=== PATIENT | male | born 1960 | race Caucasian/White ===

== ENCOUNTER 2016-08-27 09:29 | Inpatient (IN) ==
[2016-08-27 10:16] LABS: MANUAL DIFF NEEDED? NO
--- NOTE | 2016-08-27 10:24 | PROVIDER DOCUMENTATION ---
HPI-Abdominal Pain/GI Problem - General Chief Complaint: Abdominal Pain Stated Complaint: POSS DIVERTICULITIS Time Seen by Provider: 08/27/16 10:07 Source: patient, family Allergies/Adverse Reactions: Patient Allergies Allergy/AdvReac Type Severity Reaction Status Date / Time No Known Allergies Allergy Verified 08/27/16 10:44 Home Medications: Home Medication List Medication Instructions Recorded Confirmed Last Taken Type No Home Medications 08/27/16 08/27/16 Unknown History - History of Present Illness-ABD Nature of Presenting Problems: 56 yo WM with two week history of lower abdominal and groin pain. Worse over last 4-5 days. Painful walking. Saw Dr. Mast yesterday and given Cipro and Gi referral. Called in sick to work yesterday. Abdominal Pain Onset Location: reports: LLQ, suprapubic Pain Radiation: reports: back Quality of Pain: reports: aching, pressure Onset/Duration: reports: other Timing: reports: still present Activities at Onset: reports: none Exposure to sick contacts?: No Modifying Factors: improves with: analgesics. worse with: defecating Associated Symptoms: reports: fever/chills, nausea. denies: chest pain, constipation, diarrhea, sinus congestion/drainage, swelling/mass in abdomen, vomiting Last BM: this morning Rectal Bleeding: reports: none Bruising or Bleeding Gums?: No Similar Symptoms Previously?: Yes Recently seen or treated by another doctor?: Yes Review of Systems - Adult - REVIEW OF SYSTEMS - ADULT Constitutional: reports: chills, fever Eyes: reports: no symptoms reported Ears, Nose, Mouth & Throat: reports: no symptoms reported Cardiovascular: reports: no symptoms reported Respiratory: reports: no symptoms reported Gastrointestinal: reports: see HPI, nausea, poor appetite. denies: hematemesis , constipation, diarrhea, rectal bleeding, vomiting Genitourinary: reports: no symptoms reported Musculoskeletal: reports: no symptoms reported Integumentary: reports: no symptoms reported Neurological: reports: no symptoms reported Psychiatric: reports: no symptoms reported Endocrine: reports: no symptoms reported Hematologic/Lymphatic: reports: no symptoms reported Allergic/Immunologic: reports: no symptoms reported All Other Systems: Reviewed and Negative Past History - Adult - PAST MEDICAL HISTORY-ADULT Review of Records: reports: Old Records Reviewed, Nursing Assessment Review, Medications Reviewed, Social history reviewed & non-contributory. Major Childhood Illnesses: reports: denies history Cardiovascular: reports: denies history Respiratory: reports: bronchitis, COPD Gastrointestinal: reports: diverticulosis, other (R groin surgery for testicle) Genitourinary: reports: denies history Musculoskeletal: reports: denies history Neurological: reports: denies history Psychiatric: reports: denies history - PRIOR SURGERIES/PROCEDURES Surgical/Procedure History: reports: other (abdominal abscess drainage 2010 - diverticulitis) - FAMILY HISTORY Family History: reviewed, not pertinent - SOCIAL HISTORY Smoking: greater than 1 pack/day Substance Use: none/never, denies Alcohol Use Frequency: never Living Situation: family Physical Exam-General - PHYSICAL EXAM-ADULT Initial Vital Signs Reviewed: Yes - CONSTITUTIONAL General Appearance: appears well, alert, no apparent distress - EYES Eyes: PERRL/EOMI, pink conjunctivae. negative: scleral icterus - HEAD, EARS, NOSE, MOUTH & THROAT HENMT: normocephalic/atraumatic, moist mucous membranes - NECK Neck: full range of motion, supple - RESPIRATORY Respiratory: normal breath sounds, no pleuratic chest pain, no respiratory distress, no accessory muscle use, prolonged expiration - CARDIOVASCULAR Cardiovascular: normal peripheral pulses, regular rate, rhythm - GASTROINTESTINAL (ABDOMEN) Abdominal Exam: normal bowel sounds, tenderness (LLQ mild/mod) - MUSCULOSKELETAL Back Exam: no CVA tenderness, no vertebral tenderness Extremity: no pedal edema Peripheral Pulses: radial (R): 2+, radial (L): 2+, femoral (R): 1+, femoral (L) : 1+ - SKIN Integumentary: normal color, normal turgor, warm/dry - NEUROLOGIC Neurologic: grossly normal, no motor/sensory deficits - PSYCHIATRIC Psych/Mental Status: normal mood/affect, normal thought content, normal thought process, oriented x 3 Progress - PLAN OF CARE/RESULTS Progress/Plan/Lab Results: Vital Signs Temp Pulse Resp BP Pulse Ox 08/27/16 15:23 98.2 F 44 L 20 128/64 97 08/27/16 09:34 97.7 F 80 18 142/86 97 No Known Allergies Allergy (Verified 08/27/16 10:44) No Home Medications 08/27/16 Dietary Diet NPO Start TueAug 27 1425 Laboratory 08/27/16 08/27/16 08/27/16 10:40 09:37 09:37 WBC 17.63 H RBC 5.08 Hgb 15.4 Hct 46.8 MCV 92.1 MCH 30.3 MCHC 32.9 L RDW Std Deviation 14.3 Plt Count 328 MPV 10.7 H Immature Gran % (Auto) 0.2 Neut % (Auto) 77.4 H Lymph % (Auto) 12.8 L Wallace % (Auto) 8.7 Eos % (Auto) 0.6 Baso % (Auto) 0.3 Immature Gran # (Auto) 0.03 Neut # (Auto) 13.65 H Lymph # (Auto) 2.25 Wallace # (Auto) 1.54 H Eos # (Auto) 0.11 Baso # (Auto) 0.05 Sodium 134 L Potassium 4.3 Chloride 94 L Carbon Dioxide 23 L Anion Gap 17 BUN 12 Creatinine 1.0 Estimated GFR/1.73 m2 > 60 BUN/Creatinine Ratio 12 Glucose 116 H Calculated Osmolality 269 Calcium 9.4 Total Bilirubin 0.87 AST 11 ALT 10 Alkaline Phosphatase 83 Total Protein 7.9 Albumin 3.9 Globulin 4.0 Albumin/Globulin Ratio 1.0 Urine Source CLEAN CATCH Urine Color YELLOW Urine Turbidity CLEAR Urine pH 5.5 Ur Specific [place] 1.020 Urine Protein TRACE A Ur Glucose (Stick) NEGATIVE Ur Ketones (Stick) 60 A Urine Blood NEGATIVE Urine Nitrite NEGATIVE Urine Bilirubin NEGATIVE Urobilinogen Dipstick NORMAL Urine Leukocytes NEGATIVE Urine WBC (Auto) <10 Urine RBC (Auto) <10 U Epithel Cells (Auto) <10 Urine Bacteria (Auto) NEGATIVE - CONSULTS/PCP/HOSPITALIST Notification #1 *Consult/PCP/Hospitalist*: Chhaya Consult Disposition: Will see in ED Departure - Departure Time of Disposition Order: 14:00 DIAGNOSIS: Acute diverticulitis Disposition: ADMITTED INPATIENT 09 Certified Medical Emergency: Emergent Condition: Stable
[2016-08-27 10:44] LABS: BASO% 0.3 % (0.0-0.8); EOS# 0.11 X1000 (0.0-0.7); EOS% 0.6 % (0.0-10.0); HEMATOCRIT 46.8 % (42.0-52.0); HEMOGLOBIN 15.4 g/dL (14.0-18.0); IMM GRAN# 0.03 X1000 (0.0-0.04); IMM GRAN% 0.2 % (0.0-0.5); LYMPH# 2.25 X1000 (1.2-3.4); LYMPH% 12.8 % (20.5-51.1); MCH 30.3 PG (27-31); MCHC 32.9 g/dL (33-37); MCV 92.1 FL (81-99); MONO# 1.54 X1000 (0.11-0.59); MONO% 8.7 % (1.7-9.3); MPV 10.7 FL (7.4-10.4); NEUT% 77.4 % (42.2-75.2); PLT 328 X1000 (130-400); RBC 5.08 XMIL (4.7-6.1)
--- NOTE | 2016-08-27 10:52 | Diag Imaging Result Document ---
PROCEDURE NAME: ABDOMEN FLAT/UPRIGHT - 08/27/2016 FLAT AND UPRIGHT RADIOGRAPH OF THE ABDOMEN: COMPARISON: 08/31/2014. FINDINGS: There are unremarkable bowel gas and stool patterns. There is no evidence of bowel obstruction. There is no evidence of large volume free abdominal gas. There is no definite organomegaly. IMPRESSION: No evidence of acute abdominal pathology identified.
[2016-08-27 10:57] LABS: AGAP 17; ALBUMIN 3.9 g/dL (3.5-5.0); ALKALINE PHOSPHATASE 83 U/L (32-122); BUN 12 mg/dL (8-22); CALCIUM 9.4 mg/dL (8.8-10.2); CHLORIDE 94 mmol/L (98-107); COSMO 269; GOT 11 U/L (10-34); GPT 10 U/L (10-44); POTASSIUM 4.3 mmol/L (3.5-5.1); SODIUM 134 mmol/L (136-145); TCO2 23 mmol/L (25-35); TOTAL BILIRUBIN 0.87 mg/dL (0.20-1.00); TOTAL PROTEIN 7.9 g/dL (6.3-8.3)
[2016-08-27 11:04] LABS: URINE MICRO REVIEW NEEDED? NO; URINE SOURCE CLEAN CATCH
[2016-08-27 11:23] LABS: BILIRUBIN URINE NEGATIVE (NEGATIVE); BLOOD URINE NEGATIVE (NEGATIVE); COLOR YELLOW; GLUCOSE URINE NEGATIVE (NEGATIVE); LEUKOCYTES URINE NEGATIVE (NEGATIVE); NITRITE URINE NEGATIVE (NEGATIVE); PH URINE 5.5; PROTEIN URINE TRACE mg/dL (NEGATIVE); TURBIDITY URINE CLEAR (CLEAR); UROBILINOGEN URINE NORMAL (NORMAL)
[2016-08-27 11:24] LABS: UR EPITHELIAL CELLS <10 /HPF (<10); URINE BACTERIA NEGATIVE /HPF; URINE RBC <10 /HPF (<10); URINE WBC <10 /HPF (<10)
[2016-08-27] MEDS ORDERED: ZOSYN 3.375 GM/NS 50 ML IV ONE (12:24)
--- NOTE | 2016-08-27 13:24 | Diag Imaging Result Document ---
PROCEDURE NAME: CT ABD/PELVIS W/ IV CONT ONLY - 08/27/2016 CT OF THE ABDOMEN WITH INTRAVENOUS CONTRAST: COMPARISON: The current study is compared with that of 07/02/2011. FINDINGS: The pleural effusion on both sides which was present previously is no longer present. The spleen, adrenal glands, and pancreas are stable in appearance. There are no gallstones. There is no evidence of hydronephrosis, stones or masses in the kidneys. There is an abdominal aortic aneurysm below the level of the renal arteries. There is an accessory renal artery in the upper pole on the left. The abdominal aorta measures a maximum of 3.6 x 3.9 cm in AP and transverse dimension respectively. Compared to the previous study, this has increased from an AP dimension of 3.1 cm. There is considerable mural thrombus. The inferior mesenteric artery is patent as are the other mesenteric vessels. There is no evidence of significant adenopathy. There is an ovoid soft tissue density anterior to the inferior vena cava slightly below the level of the iliac crest, which was also present at the time of the previous study measuring 15 mm in diameter currently and almost [address] OF THE PELVIS WITH INTRAVENOUS CONTRAST: FINDINGS: There are multiple abnormal fluid collections around the sigmoid colon distally. These most likely represent abscesses. One at the level of image 117 measures up to 4.8 cm in diameter. Another apparently separate fluid collection posteriorly and to the right side measures up to 3.9 cm and another more posteriorly and inferiorly on image 117 measures 3.4 cm in transverse dimension. There is another fluid collection present caudal to the sigmoid on image 128 which measures up to 3.4 cm in diameter. There is some fluid in the inguinal canal on the right. There is a seroma at the inguinal ring which may be due to previous herniorrhaphy. The regional skeleton is stable in appearance. IMPRESSION: 1. Abdominal aortic aneurysm. 2. Multiple pelvic abscesses probably resulting from diverticulitis of the sigmoid colon.
[2016-08-27] MEDS ORDERED: ZOSYN 3.375 GM/NS 50 ML IV SCH (15:23)
[2016-08-27] MEDS: NS 1,000 ML IV SCH (15:39)
[2016-08-27] MEDS ORDERED: ZOFRAN IV PRN (15:51)
[2016-08-27] MEDS ORDERED: DILAUDID IV PRN (15:52)
--- NOTE | 2016-08-27 16:20 | HISTORY AND PHYSICAL ---
PRIMARY CARE PHYSICIAN: None. CHIEF COMPLAINT: Abdominal pain. HISTORY OF PRESENT ILLNESS: Mr. Ba is a 56-year-old male with a history of diverticulosis and diverticulitis in the past as well as nicotine dependence who presents with 2 weeks of progressively worsening abdominal pain. He describes intermittent sharp and dull pain associated with fevers and chills, but no diarrhea or vomiting. The pain became progressively worse, to the point were he had to come to the ER. He denies any diarrhea or vomiting. He denies any chest pain or shortness of breath. When he got to the ER he had a CT of the abdomen and pelvis done which revealed multiple pelvic abscesses probably resulting from diverticulitis of the sigmoid colon. There was also an abdominal aortic aneurysm below the level of the renal arteries. Maximum measurement was 3.6 x 3.9 cm. There was considerable mural thrombus. There was an avid soft tissue density anterior to the inferior vena cava slightly below the level of the iliac crest. His laboratory data shows leukocytosis, but otherwise is largely unremarkable. Blood cultures have been obtained, antibiotics initiated, and the patient will now be admitted for further treatment and evaluation. PAST MEDICAL HISTORY: 1. History of diverticulosis and diverticulitis in the past. 2. Nicotine dependence. SURGICAL HISTORY: Herniorrhaphy. SOCIAL HISTORY: Patient smokes 2 packs a day. He denies alcohol or drug use. He is . He has no children. He works at [employer] part-time. FAMILY HISTORY: Noncontributory. REVIEW OF SYSTEMS: Fourteen-point review of systems obtained and found to be negative with the exception of the HPI. ALLERGIES: No known drug allergies. HOME MEDICATIONS: None. PHYSICAL EXAMINATION: VITAL SIGNS: Blood pressure is 128/64, heart rate is 80, respiratory rate is 20, O2 saturation 97% on room air. Temperature is 98.2 degrees. GENERAL: This is a disheveled appearing 56-year-old male lying in the hospital bed in no acute distress. NEUROLOGIC: He is awake, alert, and oriented. He follows commands without focal deficits. HEENT: Head is atraumatic and normocephalic. His pupils are equal, round, and reactive to light. Oral mucosa is moist. Trachea is midline. No JVD or carotid bruits. CHEST: Clear to auscultation bilaterally. CARDIOVASCULAR: Regular rate and rhythm. S1 and S2 noted. There are no murmurs, gallops, clicks, or rubs. GASTROINTESTINAL: Bilateral lower quadrant tenderness to palpation. Hypoactive bowel sounds, but overall belly is soft and nondistended. Bowel sounds are hypoactive. EXTREMITIES: Without edema, clubbing or cyanosis. Pulses are palpable bilaterally. DIAGNOSTIC DATA: WBC 17.63, hemoglobin 15.4, hematocrit 46.8, platelet count 328,000. Sodium 134, potassium 4.3, chloride 94, CO2 of 23, anion gap 17, BUN 12, creatinine 1, glucose 116, AST 11, ALT 10, alkaline phosphatase 83. UA is negative for any acute process. ASSESSMENT AND PLAN: 1. Diverticulitis: The patient has had blood cultures and antibiotics have been initiated. We will keep the patient n.p.o. IV fluids, IV pain medication, and proton pump inhibitor. Depending on his course, we will consider consultation with GI if he worsens. Otherwise we can give him IV antibiotics and let him follow up with GI on an outpatient basis. If his symptoms worsen, obviously, we will have GI consult. 2. Leukocytosis: No other signs of systemic inflammation. Blood cultures have been obtained and we are continuing with Zosyn. 3. Nicotine dependence: Patient has been highly advised to quit smoking. We will continue daily cessation education and write for a patch daily. 4. Small abdominal aortic aneurysm: Certainly not large enough to intervene on; however, we will monitor his blood pressure and control appropriately, and have him follow up outpatient with PCP or cardiothoracic surgeon. 5. GI prophylaxis with Protonix and DVT prophylaxis with TEDs, SCDs. Further recommendations to follow. Dictated by BEVERLY Holman for Astrid Gay MD
[2016-08-27] MEDS: SODIUM CHLORIDE 0.9% INJ SCH (16:25)
[2016-08-27] MEDS: FLAGYL 500 MG/NS 100 ML IV SCH ×2 (16:25→21:39)
[2016-08-27] MEDS: PROTONIX IV SCH (16:25)
[2016-08-27] MEDS: LEVAQUIN 750 MG in NS 150 ML IV SCH (18:33)
--- NOTE | 2016-08-27 18:43 | CONSULTATION ---
DATE OF CONSULTATION: 08/27/2016 REQUESTING PHYSICIAN: Dr. Kulkarni. Consult concerning recurrent diverticulitis with abscess. HISTORY OF PRESENT ILLNESS: A 56-year-old, male, well known to my group who has been previously followed by Dr. Melendez for diverticulosis and diverticulitis in the past. He has had at least 2 previous episodes, one in 2010 and one in 2014 that did not require surgery. He came into the emergency department with progressively worsening abdominal pain, although his abdominal pain has improved. He describes it as being intermittent and sharp and located in the bilateral lower quadrants. When he came to the emergency department he had a CT scan that showed multiple pelvic abscesses resulting from diverticulitis/ he does have a significant diverticular burden. He also has a small abdominal aortic aneurysm measured at maximal diameter of 3.9 cm. He was initially admitted by the hospitalist service and has been started on Levaquin and Flagyl. I was asked to evaluate the patient for an opinion. At this time the patient is reporting that his pain is considerably improved. He is nontoxic appearance. PAST MEDICAL HISTORY: 1. History of diverticulosis. 2. Nicotine dependence. PAST SURGICAL HISTORY: Includes hernia repair. SOCIAL: Current smoker. Denies alcohol, tobacco or illicit drugs. FAMILY HISTORY: Reviewed with patient but noncontributory. ALLERGIES: None. HOME MEDICATIONS: None. REVIEW OF SYSTEMS: A full 10 point review of systems obtained negative except as specified in HPI. PHYSICAL EXAMINATION: Vital Signs: The patient is currently afebrile. His vital signs are stable. General: No acute distress. Resting comfortably in bed. HEENT: Normocephalic atraumatic. Pupils equal, round, reactive to light. Mucous membranes moist. Oropharynx benign. Neck: Supple. Trachea midline. Cardiovascular: Regular rate and rhythm. Lungs: Grossly clear. Abdomen: Soft, nondistended. Some mild tenderness to bilateral lower quadrants. No peritoneal signs at this time. Extremities: Moves all extremities well. Neurologic: Grossly intact. Skin: No signs of jaundice. Vascular: All extremities perfused. LABORATORY: White blood cell count 17.6, hematocrit 46, platelet count 328,000. CMP reviewed. CT scan independently reviewed and Radiology report reviewed. I did discuss over the phone with Dr. Villaseñor the results. ASSESSMENT AND PLAN: A 56-year-old, male with recurrent diverticulitis with abscess now. 1. Recurrent diverticulitis. At this time patient does not look clinically septic. He does not have peritonitis. He is not tachycardic. He does have a leukocytosis and an abscess. This is most likely related diverticulitis. At this time we will recommend continued antibiotic treatment and bowel rest. If the patient's clinical status changes may consider resection but at this time may hold off. Discussed with the patient the fact that this is his at least 3rd episode of diverticulitis and that he likely needs a resection. If we can get him over this episode we could potentially do an elective bowel resection. This was all discussed with the patient. I will continue to follow the patient with you. 2. Small abdominal aortic aneurysm. At this time not of size criteria to merit intervention but will need serial imaging. I appreciate the consult.
[2016-08-28] MEDS: NS 1,000 ML IV SCH ×3 (04:18→20:25)
[2016-08-28] MEDS: FLAGYL 500 MG/NS 100 ML IV SCH ×4 (04:18→21:05)
[2016-08-28 07:11] LABS: HEMATOCRIT 41.9 % (42.0-52.0); HEMOGLOBIN 13.7 g/dL (14.0-18.0); MCH 30.6 PG (27-31); MCHC 32.7 g/dL (33-37); MCV 93.7 FL (81-99); MPV 10.2 FL (7.4-10.4); RBC 4.47 XMIL (4.7-6.1)
[2016-08-28 07:26] LABS: AGAP 15; BUN 13 mg/dL (8-22); CALCIUM 8.8 mg/dL (8.8-10.2); CHLORIDE 100 mmol/L (98-107); COSMO 275; POTASSIUM 4.8 mmol/L (3.5-5.1); SODIUM 138 mmol/L (136-145); TCO2 23 mmol/L (25-35)
[2016-08-28 07:38] LABS: HEMOGLOBIN A1C 5.6 % (4.8-6.0)
--- NOTE | 2016-08-28 08:34 | PROGRESS NOTE ---
DATE: 08/28/2016 SUBJECTIVE: The patient reports some discomfort in his groin area, but has improved since his presentation. He denies any other symptoms. OBJECTIVE: Vital Signs: Patient is currently afebrile. His vital signs are stable. General exam: No acute distress. Alert, interactive male, who looks stated age. HEENT: Normocephalic, atraumatic. Pupils equal, round, reactive to light. Mucous membranes moist. Oropharynx benign. Neck: Supple. Trachea midline. Cardiovascular: Regular rate and rhythm. Lungs: Grossly clear. Abdomen: Soft and nondistended. Some mild tenderness to palpation in the suprapubic bilateral lower quadrants. No peritoneal signs. Extremities: Moves all extremities well. Neurologic: Grossly intact. Skin: No signs of jaundice. Vascular: All extremities perfused. LABORATORY: Of note, patient's white blood cell count 13.3, hematocrit is 41, platelet count 250. ASSESSMENT/PLAN: A 56-year-old, male with diverticular abscess. 1. Diverticular abscess. At this time patient is clinically stable. He has had some improvement in his white blood cell count and his clinical picture. Will keep the patient on nothing by mouth for now. May consider repeating CT scan in the next 24-48 hours. Discussed with the patient if clinical picture changes, he may need exploratory laparotomy. He is aware of this and agrees with treatment.
[2016-08-28] MEDS: TYLENOL PO PRN ×2 (10:45→22:30)
--- NOTE | 2016-08-28 16:37 | PROGRESS NOTE ---
DATE: 08/28/2016 SUBJECTIVE: The patient does complain of lower abdominal tenderness and pain. He denies having any nausea, vomiting. OBJECTIVE: Vital Signs: Temperature 98.4 degrees, blood pressure 119/64, heart rate 54, respirations 18, O2 saturations 97% on room air. General: This is an elderly male lying in bed in no acute distress. Head: Normocephalic. Atraumatic. Heart: S1, S2. Normal. Bradycardic. Lungs: Clear to auscultation bilaterally. No wheezes, no rales. No rhonchi. Abdomen: Positive bowel sounds. Soft. Tenderness in the lower abdominal quadrant. Extremities: No edema. No cyanosis. LABS: White blood cell count 13, hemoglobin 13, hematocrit 41, platelets 250,000. Sodium 138, potassium 4.8, chloride 100, CO2 23, BUN 13, creatinine 0.9. ASSESSMENT AND PLAN: 1. Acute diverticulitis with diverticular abscesses. Continue on IV Flagyl and IV Levaquin. General surgery is following. 2. Leukocytosis. Improved. Continue on the current IV antibiotic regimen. 3. Gastrointestinal prophylaxis. Continue on IV Protonix. 4. Deep vein thrombosis prophylaxis. Will start the patient on Lovenox.
[2016-08-28] MEDS: SODIUM CHLORIDE 0.9% INJ SCH (17:25)
[2016-08-28] MEDS: LOVENOX SUBQ SCH (17:25)
[2016-08-28] MEDS: PROTONIX IV SCH (17:26)
[2016-08-28] MEDS: LEVAQUIN 750 MG in NS 150 ML IV SCH (17:27)
[2016-08-29] MEDS: FLAGYL 500 MG/NS 100 ML IV SCH ×4 (04:29→21:47)
[2016-08-29] MEDS: NS 1,000 ML IV SCH ×2 (04:30→17:08)
[2016-08-29 06:48] LABS: HEMATOCRIT 39.5 % (42.0-52.0); MCH 30.7 PG (27-31); MCHC 32.9 g/dL (33-37); MCV 93.2 FL (81-99); MPV 9.8 FL (7.4-10.4); RBC 4.24 XMIL (4.7-6.1)
[2016-08-29 07:13] LABS: AGAP 16; BUN 11 mg/dL (8-22); CALCIUM 8.5 mg/dL (8.8-10.2); CHLORIDE 101 mmol/L (98-107); COSMO 273; MAGNESIUM 1.9 mg/dL (1.5-2.7); POTASSIUM 4.3 mmol/L (3.5-5.1); SODIUM 137 mmol/L (136-145); TCO2 20 mmol/L (25-35)
--- NOTE | 2016-08-29 07:29 | PROGRESS NOTE ---
DATE: 08/29/2016 SUBJECTIVE: Patient doing well. Still some mild discomfort in his groin area but overall still improved from his presentation. OBJECTIVE: Vital Signs: Patient is currently afebrile. His vital signs have been stable. General Examination: No acute distress. Alert and interactive, male. Looks stated age. HEENT: Normocephalic, atraumatic. Pupils equal, round, reactive to light. Mucous membranes moist. Oropharynx benign. Neck: Supple. Trachea midline. Cardiovascular: Regular rate and rhythm. Lungs: Grossly clear. Abdomen: Soft, nondistended. Tender to palpation in the bilateral lower quadrants, essentially unchanged from yesterday. Extremities: Moves all extremities well. Neurologic: Grossly intact. Skin: No signs of jaundice. Vascular: All extremities perfused. Laboratory: White blood cell count is 13.7 which is essentially stable from yesterday, hematocrit is 39, platelet count 251,000. ASSESSMENT AND PLAN: A 56-year-old, male with diverticular abscess. Diverticular abscess. At this time, patient remains clinically stable. His white blood cell count has remained stable. He is on intravenous antibiotics. We will repeat CT scan today and evaluate for change. Discussed with patient that if his clinical status changes, he will need exploratory laparotomy. Otherwise, continue current treatment.
[2016-08-29] MEDS: TYLENOL PO PRN ×2 (08:19→17:11)
--- NOTE | 2016-08-29 10:58 | Diag Imaging Result Document ---
PROCEDURE NAME: CT ABD/PELVIS W/ IV CONT ONLY - 08/29/2016 CT OF THE ABDOMEN WITH INTRAVENOUS CONTRAST: FINDINGS: There is some patchy emphysematous change in the lung bases which has not changed since 08/27/2016. There is an abdominal aortic aneurysm which has not changed significantly since the previous study. The liver, spleen, adrenal glands, and pancreas are stable in appearance. There is some vicarious excretion of contrast in the gallbladder which is presumably due to the previous study. The kidneys are without evidence of hydronephrosis or mass. The abscesses which were demonstrated on the previous study are again noted. There are surrounding reactive lymph nodes. CT OF THE PELVIS: FINDINGS: The anterior abscess present on image 89 is somewhat smaller than it was previously having a long axis dimension of 3.8 cm compared to 4.9 cm previously. The abscess which was present directly beneath the sigmoid colon on the previous study on image 128 is also somewhat smaller with a short axis dimension of 2 cm today versus 2.4 cm previously. Otherwise, there has been no appreciable change. IMPRESSION: Improvement in at least 2 of the pelvic abscesses previously demonstrated.
--- NOTE | 2016-08-29 14:12 | PROGRESS NOTE ---
DATE: 08/29/2016 SUBJECTIVE: The patient states that his lower abdominal pain has improved. He has no nausea or vomiting. He is afebrile. OBJECTIVE: Vital Signs: Temperature 97 degrees, blood pressure 127/75, heart rate 53, respirations 18, O2 saturations 97% on room air. General: This is an elderly male, lying comfortably in bed, in no acute distress. Head: Normocephalic, atraumatic. Heart: S1, S2 normal. Regular rate and rhythm. Lungs: Clear to auscultation bilaterally. No wheezes, no rales, no rhonchi. Abdomen: Positive bowel sounds. Soft, nontender, nondistended. Extremities: No edema. No cyanosis. No calf tenderness. Neurologic: The patient is alert oriented x3. LABS: White blood cell count 13.7, hemoglobin 13, hematocrit 39, platelets 251,000. Sodium 137, potassium 4.3. Chloride 101, CO2 20, BUN 11, creatinine 0.8. Glucose 93. Magnesium 1.9. Calcium 8.5. ASSESSMENT AND PLAN: 1. Diverticular abscesses. Continue on IV Flagyl and Levaquin. A repeat CT of the abdomen and pelvis done this morning shows improvement in some of the diverticular abscesses. General surgery is following. 2. Leukocytosis. Unchanged. Continue on IV antibiotic therapy. 3. Asymptomatic bradycardia. Stable. 4. Gastrointestinal prophylaxis. Continue on IV Protonix. 5. Deep vein thrombosis prophylaxis. Continue on Lovenox.
[2016-08-29] MEDS: PROTONIX IV SCH (16:09)
[2016-08-29] MEDS: LOVENOX SUBQ SCH (17:09)
[2016-08-29] MEDS: LEVAQUIN 750 MG in NS 150 ML IV SCH (17:09)
[2016-08-30] MEDS: TYLENOL PO PRN ×3 (00:58→18:57)
[2016-08-30] MEDS: NS 1,000 ML IV SCH ×2 (03:58→14:46)
[2016-08-30] MEDS: FLAGYL 500 MG/NS 100 ML IV SCH ×4 (03:58→21:37)
--- NOTE | 2016-08-30 06:08 | PROGRESS NOTE ---
DATE: 08/30/2016 SUBJECTIVE: Patient had a CT scan done yesterday which showed some improvement in the abscess as noted. He says he is feeling good at this time better than he has been through the course of his admission. He has got no major complaints. OBJECTIVE: Vital Signs: The patient has been afebrile. His vital signs have been stable. General: No acute distress. Alert and interactive male looks his stated age. HEENT: Normocephalic, atraumatic. Pupils equal, round and reactive to light. Mucous membranes moist. Oropharynx benign. Neck: Supple. Trachea midline. Cardiovascular: Regular rate and rhythm. Lungs: Grossly clear. Abdomen: Soft, nondistended. Tenderness to palpation in the right bilateral lower quadrant and appears less this morning. Extremities: Moves all extremities well. Neurologic: Grossly intact. Skin: No signs of jaundice. Vascular: All extremities perfused. LABORATORY: Currently pending. I reviewed the labs from yesterday. CT scan reviewed from yesterday and discussed over the phone with radiologist. ASSESSMENT/PLAN: A 56-year-old male with diverticular abscess. 1. Diverticular abscess. At this time, repeat imaging showed some interval improvement. We will start him on clear liquid diet to keep him on IV antibiotics for now. Likely, we will slowly advance him to a low residue diet through the course of the next several days and transition him over to p.o. antibiotics. We will likely need a repeat CT scan as an outpatient once he is discharged as his clinical picture does not deteriorate. This was all discussed with the patient. Also, discussed with the patient that given his multiple episodes he is likely going to need a resection. If we can get him through this episode, we could potentially do it as an elective procedure. He voiced his understanding.
[2016-08-30 06:49] LABS: HEMATOCRIT 41.1 % (42.0-52.0); HEMOGLOBIN 13.5 g/dL (14.0-18.0); MCH 30.8 PG (27-31); MCHC 32.8 g/dL (33-37); MCV 93.6 FL (81-99); MPV 10.1 FL (7.4-10.4); RBC 4.39 XMIL (4.7-6.1)
[2016-08-30 07:08] LABS: AGAP 17; BUN 8 mg/dL (8-22); CALCIUM 8.8 mg/dL (8.8-10.2); CHLORIDE 101 mmol/L (98-107); COSMO 275; MAGNESIUM 1.9 mg/dL (1.5-2.7); POTASSIUM 4.5 mmol/L (3.5-5.1); SODIUM 139 mmol/L (136-145); TCO2 21 mmol/L (25-35)
[2016-08-30] MEDS: PROTONIX IV SCH (16:43)
[2016-08-30] MEDS: SODIUM CHLORIDE 0.9% INJ SCH (16:43)
[2016-08-30] MEDS: LOVENOX SUBQ SCH (16:44)
[2016-08-30] MEDS: LEVAQUIN 750 MG in NS 150 ML IV SCH (17:20)
[2016-08-31] MEDS: NS 1,000 ML IV SCH ×4 (04:47→22:55)
[2016-08-31] MEDS: FLAGYL 500 MG/NS 100 ML IV SCH ×3 (04:55→15:36)
--- NOTE | 2016-08-31 07:54 | PROGRESS NOTE ---
DATE: 08/31/2016 SUBJECTIVE: Patient doing well. Still reports his pain is improving. Tolerated clear liquids. No major issues. OBJECTIVE: Vital Signs: The patient is currently afebrile. His vital signs have been stable. General: No acute distress. Alert, interactive, male, looks stated age. HEENT: Normocephalic, atraumatic. Pupils equal, round, react to light. Mucous membranes moist. Oropharynx benign. Neck: Supple. Trachea midline. Cardiovascular: Rate and rhythm. Lungs: Grossly clear. Abdomen: Soft, nondistended. Tenderness to palpation bilateral lower quadrants. Appears to be improving. Extremities: Moves all extremities well. Neurologic: Grossly intact. Skin: No signs of jaundice. Vascular: All extremities perfused. LABORATORY: Pending for this morning. Reviewed from yesterday. His white blood cell count 11 from yesterday which is improving overall. ASSESSMENT AND PLAN: A 56-year-old, male with diverticular abscess. Diverticular abscess. At this time patient continues to make clinical improvement. Will advance him to a full liquid diet. If he continues to improve we will consider transitioning him over to a low residue diet and p.o. antibiotics. This was all discussed with the patient. All questions were answered patient.
--- NOTE | 2016-08-31 15:25 | PROGRESS NOTE ---
DATE: 08/31/2016 SUBJECTIVE: Patient states he feels great. He has had no abdominal pain since last night. He is actually requesting when he can go home. Currently, we are advancing diet and, if tolerates, will be able to go home soon. No other complaints. Denies nausea or vomiting. States he is having daily bowel movements that are normal in color and consistency. PHYSICAL EXAMINATION: Vital Signs: Temperature is 98.0 degrees, heart rate 51 , respiratory rate 20, blood pressure 158/73, O2 saturation 99% on room air. General: Mr. Ba is a 56-year-old male in no acute distress. He is able answer all questions appropriately. Cardiovascular: S1, S2. Bradycardic rate and rhythm. No rubs, gallops, or murmurs. Pulmonary: Mildly coarse throughout anteriorly and posteriorly. No accessory muscle use or work of breathing noted currently on room air. Gastrointestinal: Soft, nontender, nondistended. Positive bowel sounds x4. Extremities: No edema noted. Dorsalis and radial pulses +2. Neurologic: Alert and oriented x4. Moves all extremities equally. LABORATORY DATA: No labs currently for today. Yesterday, white count was 1100. Today, his magnesium level is 1.8. IMAGING: He last had an abdominal/pelvic CT on 08/29/2016 which revealed improvement in at least 2 of the pelvic abscesses previously demonstrated. ASSESSMENT AND PLAN: 1. Diverticular abscesses. Continue on IV Flagyl and IV Levaquin. Repeated CT showed improvement. General surgery is following and has recommended that he will be advanced to a full liquid diet and if he continues to improve, will consider transitioning over to low residual diet and p.o. antibiotic. If he tolerates this, then he should be able to be going home soon. 2. Leukocytosis. Continuing antibiotics. 3. Bradycardia is asymptomatic. Electrolytes have been stable. 4. Gastrointestinal prophylaxis. Proton pump inhibitor. 5. Deep venous thrombosis prophylaxis with Lovenox. 6. Tobacco abuse. Cessation discussed. Dictated by BEVERLY Jamison for Olvin Vallejo MD Addendum: I personally evaluated and examined the patient in conjunction to the DICTAPHONE MECHANIC and agreed with her assessments and plans. He has no abdominal pain. Will transition him to Oral abx and watch him overnight. If tolerates them, will get him home soon. [facility]
[2016-08-31] MEDS: LOVENOX SUBQ SCH (15:36)
[2016-08-31] MEDS: PROTONIX IV SCH (15:36)
[2016-08-31] MEDS: SODIUM CHLORIDE 0.9% INJ SCH (15:36)
[2016-08-31] MEDS: LEVAQUIN 750 MG in NS 150 ML IV SCH (17:14)
[2016-08-31] MEDS: FLAGYL PO SCH (21:44)
[2016-09-01] MEDS: FLAGYL PO SCH ×4 (02:22→20:27)
[2016-09-01] MEDS: NS 1,000 ML IV SCH ×3 (05:54→20:26)
--- NOTE | 2016-09-01 06:43 | PROGRESS NOTE ---
DATE: 09/01/2016 SUBJECTIVE: Patient doing well. Reports tolerating his full liquid diet. He has a bowel movement recorded. OBJECTIVE: Vital Signs: Patient is currently afebrile. His vital signs were stable. General: No acute distress. Resting comfortably. male, looks stated age. HEENT: Normocephalic, atraumatic. Pupils equal, round, reactive to light. Mucous membranes moist. Oropharynx benign. Neck: Supple. Trachea midline. Cardiovascular: Regular rate and rhythm. Lungs: Grossly clear. Abdomen: Soft, nondistended. Tenderness to palpation bilateral lower quadrants appears to be improving. Extremities: Moves all extremities well. Neurologic: Grossly intact. Skin: No signs of jaundice. Vascular: All extremities perfused. LABORATORY: None from yesterday. He does have labs ordered for this morning. ASSESSMENT AND PLAN: A 56-year-old, male with diverticular abscess. Diverticular abscess: At this time, patient has made clinical improvement. We will plan on advancing him to low residue diet and transition him over to p.o. antibiotics. Would like to monitor him for least 24 hours on this regimen before discharging him, but possibly be able to discharge him tomorrow.
[2016-09-01 07:07] LABS: MANUAL DIFF NEEDED? NO
[2016-09-01 07:22] LABS: BASO% 0.6 % (0.0-0.8); EOS# 0.17 X1000 (0.0-0.7); EOS% 2.5 % (0.0-10.0); HEMATOCRIT 38.2 % (42.0-52.0); HEMOGLOBIN 12.8 g/dL (14.0-18.0); IMM GRAN# 0.03 X1000 (0.0-0.04); IMM GRAN% 0.4 % (0.0-0.5); LYMPH# 1.42 X1000 (1.2-3.4); LYMPH% 20.9 % (20.5-51.1); MCH 30.5 PG (27-31); MCHC 33.5 g/dL (33-37); MONO# 0.68 X1000 (0.11-0.59); MPV 10.2 FL (7.4-10.4); NEUT% 65.6 % (42.2-75.2); PLT 248 X1000 (130-400)
[2016-09-01 07:28] LABS: AGAP 13; ALBUMIN 2.8 g/dL (3.5-5.0); ALKALINE PHOSPHATASE 50 U/L (32-122); BUN 6 mg/dL (8-22); CALCIUM 8.3 mg/dL (8.8-10.2); CHLORIDE 103 mmol/L (98-107); COSMO 275; GOT 39 U/L (10-34); GPT 25 U/L (10-44); MAGNESIUM 1.8 mg/dL (1.5-2.7); POTASSIUM 3.9 mmol/L (3.5-5.1); SODIUM 139 mmol/L (136-145); TCO2 23 mmol/L (25-35); TOTAL BILIRUBIN 0.33 mg/dL (0.20-1.00); TOTAL PROTEIN 5.6 g/dL (6.3-8.3)
[2016-09-01] MEDS: LEVAQUIN PO SCH (08:28)
--- NOTE | 2016-09-01 10:44 | PROGRESS NOTE ---
DATE: 09/01/2016 SUBJECTIVE: Mr. Ba states he feels much better. He is ready to go home. States he is having no issues with eating his food now. No complaints of pain. No complaints of nausea. OBJECTIVE: Vital Signs: Temperature 97.9 degrees, heart rate 46, respiratory rate 20, blood pressure 141/83, O2 saturation 99% on room air. General: Mr. Ba is a 56- year-old male, who is in no acute distress. He is able to answer all questions appropriately. Cardiovascular: S1, S2. Bradycardic rate and rhythm. No rubs, gallops, murmurs. Pulmonary: Clear to auscultation. Bilateral breath sounds. No accessory muscle use or work of breathing noted. Gastrointestinal: Abdomen soft, nontender, nondistended. Positive bowel sounds x4. Extremities: No edema noted, +2 dorsalis and radial pulses. Neurologic: A O x4. Moves all extremities equally. LABORATORY DATA: White blood cells 6000, hemoglobin 12, hematocrit 38, platelet count 139,000. Potassium 3.9, BUN 6, creatinine 0.7, glucose 101, calcium 8.3, phosphorus 2.8, magnesium 1.8. IMAGING: None. ASSESSMENT AND PLAN: 1. Diverticular abscesses. He has now been changed to oral antibiotics which consist of Levaquin 750 mg p.o. daily. He will be receiving this for 2 weeks. Flagyl 500 mg p.o. q.6 hours. He will also receive this for 2 weeks. He has been advanced to a GI soft diet. He is also being followed by surgery who is managing diet intake. 2. Leukocytosis is resolved. 3. Bradycardia that is asymptomatic. Electrolytes are stable. 4. Tobacco abuse. Cessation discussed. 5. Gastrointestinal prophylaxis. Proton pump inhibitor. 6. Deep venous thrombosis prophylaxis. Lovenox. 7. Disposition: Likely will be able to go home tomorrow after observation of p.o. intake without complications. Dictated by BEVERLY Jamison for Olvin Vallejo MD Addendum: I have evaluated and examined the patient in conjunction to the BROILER SUPERVISOR and agreed with her assessment and plans. NO abd pain on physical exam. Customer Accounts Advisor's note was reviewed. JUAN DAVID
[2016-09-01] MEDS: PROTONIX IV SCH (16:15)
[2016-09-01] MEDS: SODIUM CHLORIDE 0.9% INJ SCH (16:16)
[2016-09-01] MEDS: LOVENOX SUBQ SCH (16:16)
[2016-09-02] MEDS: FLAGYL PO SCH ×2 (02:26→08:09)
[2016-09-02] MEDS: NS 1,000 ML IV SCH ×2 (04:14→13:12)
--- NOTE | 2016-09-02 06:45 | PROGRESS NOTE ---
DATE: 09/02/2016 SUBJECTIVE: Patient doing well. Tolerating his diet. OBJECTIVE: Vital Signs: Patient is currently afebrile. His vital signs have been stable. General: No acute distress. Alert and oriented x3. male, looks stated age. HEENT: Normocephalic, atraumatic. Pupils are round, react to light. Mucous membranes moist. Oropharynx benign. Neck: Supple. Trachea midline. Cardiovascular: Regular rate and rhythm. Lungs: Grossly clear. Abdomen: Soft, nontender, nondistended at this time. Extremities: Moves all extremities. Neurologic: Grossly intact. Skin: No signs of jaundice. Vascular: All extremities perfused. LABORATORY: None from this morning. ASSESSMENT AND PLAN: A 56-year-old, male with a diverticular abscess. Diverticular abscess. At this time, patient has made clinical improvement, and can likely discharge him home today. I would like to see the patient in 1-2 weeks in the office and then consider repeat CT scan at that time.
[2016-09-02 07:23] LABS: MANUAL DIFF NEEDED? NO
[2016-09-02 07:30] LABS: BASO% 0.7 % (0.0-0.8); EOS# 0.27 X1000 (0.0-0.7); EOS% 3.3 % (0.0-10.0); HEMOGLOBIN 13.6 g/dL (14.0-18.0); IMM GRAN# 0.04 X1000 (0.0-0.04); IMM GRAN% 0.5 % (0.0-0.5); LYMPH# 1.57 X1000 (1.2-3.4); LYMPH% 19.3 % (20.5-51.1); MCH 30.4 PG (27-31); MCHC 33.2 g/dL (33-37); MCV 91.7 FL (81-99); MONO# 0.87 X1000 (0.11-0.59); MONO% 10.7 % (1.7-9.3); MPV 10.4 FL (7.4-10.4); NEUT% 65.5 % (42.2-75.2); PLT 266 X1000 (130-400); RBC 4.47 XMIL (4.7-6.1)
[2016-09-02 07:43] LABS: AGAP 10; ALBUMIN 3.1 g/dL (3.5-5.0); ALKALINE PHOSPHATASE 53 U/L (32-122); BUN 8 mg/dL (8-22); CALCIUM 8.7 mg/dL (8.8-10.2); CHLORIDE 101 mmol/L (98-107); COSMO 276; GOT 47 U/L (10-34); GPT 38 U/L (10-44); MAGNESIUM 1.8 mg/dL (1.5-2.7); POTASSIUM 4.3 mmol/L (3.5-5.1); SODIUM 139 mmol/L (136-145); TCO2 28 mmol/L (25-35); TOTAL BILIRUBIN 0.31 mg/dL (0.20-1.00); TOTAL PROTEIN 6.1 g/dL (6.3-8.3)
[2016-09-02] MEDS: LEVAQUIN PO SCH (08:09)
[2016-09-02 08:21] VITALS: BP 142/82
--- NOTE | 2016-09-02 17:05 | DISCHARGE SUMMARY ---
ADMISSION DATE: 08/27/2016 DISCHARGE DATE: 09/02/2016 ADMISSION DIAGNOSES: 1. Diverticulitis. 2. Leukocytosis. 3. Tobacco abuse. 4. Small abdominal aortic aneurysm. DISCHARGE DIAGNOSES: 1. Diverticular abscesses. Which he will be taking oral antibiotics consistent with Levaquin 750 p.o. daily for 2 weeks. Flagyl 500 mg p.o. every 6 hours for 2 weeks and gastrointestinal soft diet for this. 2. Leukocytosis, resolved. 3. Asymptomatic bradycardia. 4. Tobacco abuse. Cessation continued to be discussed and patient agrees. 5. Small abdominal aortic aneurysm. Not large enough for intervention. Blood pressure was controlled. CONSULTS: Bassam Helton MD with General surgery. PROCEDURES AND FINDINGS: An abdominal pelvic CT on 08/29/2016. Shows improvement in at least 2 of the pelvic abscesses previously demonstrated that were located beneath the sigmoid colon. HISTORY AND HOSPITAL COURSE: Mr. Ba is a 56-year-old, male with a history of diverticulosis and diverticulitis in the past with tobacco abuse, who presents with 2 weeks of progressively worsening abdominal pain. It was intermittent, sharp and dull with fevers and chills, although he denied nausea and vomiting. Secondary to the pain is the reason he came in for medical management. That is when he had the abdominal CT performed, which revealed multiple pelvic abscesses in the sigmoid colon. It also showed an abdominal aortic aneurysm, blood level of the renal arteries max measurement 3.6 x 3.9 cm. He is also found to have leukocytosis. Was initiated on antibiotics and blood cultures were obtained. Blood cultures showed no growth after 5 days. He was n.p.o. and eventually advanced to a GI soft diet. Secondary to clinical improvement, resolving pain, resolving fevers, it was found that he was safe for discharge home. He has wanted to be seen by Dr. Helton in 1-[address] scan. DISCHARGE LAB DATA: White blood cells 8000, hemoglobin 13, hematocrit 41. Platelet count 266. Sodium 139, potassium 4.3, BUN 8, creatinine 0.8, glucose 106, calcium 8.7, total bilirubin 0.31. AST 47, ALT 38. Protein 6.1, albumin 3.1. DISCHARGE VITAL SIGNS: Temperature 97.7, heart rate 45, respiratory rate 20, blood pressure 142/82. Saturation is 100% on room air. DISCHARGE ACTIVITY: Activity as tolerated. DISCHARGE DIET: GI soft. DISPOSITION: Home. DISCHARGE INSTRUCTIONS: He is to see Dr. Helton in 1-2 weeks for follow up abdominal CT. Continue with GI diet. Smoking cessation discussed and to return to the ER if symptoms return. He will continue his oral antibiotics for 2 weeks. DISCHARGE MEDICATIONS: Will be Flagyl 500 mg p.o. every 8 hours. Levaquin 750 mg p.o. daily. Dictated by BEVERLY Jamison for Olvin Vallejo MD
== END 2016-09-02 13:27 | disposition home or self-care (01) | DRG 392 ==
LOC: ED 09:29 → 3N 14:46
PROVIDERS: ATTEND Internal Medicine
DX: K57.20 Diverticulitis of large intestine with perforation and abscess without bleeding (principal); R00.1 Bradycardia, unspecified; I71.4 Abdominal aortic aneurysm, without rupture; F17.210 Nicotine dependence, cigarettes, uncomplicated
CPT/HCPCS: 36415; 74020; 74177; 80048; 80053; 81001; 83036; 83735; 84100; 85025; 85027; 87040; 96365; C9113; J1650; J2543; J7030; Q9967; S0030; S0164

== ENCOUNTER 2017-02-03 02:27 | Inpatient (IN) ==
[2017-02-01 11:03] LABS: MANUAL DIFF NEEDED? NO
[2017-02-01 11:18] LABS: BASO% 0.4 % (0.0-0.8); EOS# 0.05 X1000 (0.0-0.7); EOS% 0.5 % (0.0-10.0); HEMOGLOBIN 17.3 g/dL (14.0-18.0); IMM GRAN# 0.04 X1000 (0.0-0.04); IMM GRAN% 0.4 % (0.0-0.5); LYMPH# 2.13 X1000 (1.2-3.4); LYMPH% 19.5 % (20.5-51.1); MCH 31.3 PG (27-31); MCHC 33.9 g/dL (33-37); MCV 92.4 FL (81-99); MONO# 0.93 X1000 (0.11-0.59); MONO% 8.5 % (1.7-9.3); MPV 10.7 FL (7.4-10.4); NEUT% 70.7 % (42.2-75.2); PLT 176 X1000 (130-400); RBC 5.52 XMIL (4.7-6.1)
--- NOTE | 2017-02-01 11:33 | EKG Report ---
Test Performed on : 02/01/2017 10:50:18 AM Test Reason : PAT Blood Pressure : / mmHG Vent. Rate : 048 BPM Atrial Rate : 048 BPM P-R Int : 138 ms QRS Dur : 096 ms QT Int : 448 ms P-R-T Axes : 052 028 054 degrees QTc Int : 400 ms Sinus bradycardia. with premature atrial complexes. Otherwise normal ECG When compared with ECG of 08-MAR-2011 15:47, T wave amplitude has decreased in far lateral leads [id number] Clinical Correlation advised Confirmed by John Mello DO ([id number]) on 02/01/2017 6:42:18 PM
[2017-02-03] MEDS ORDERED: LR 1,000 ML ONE ×2 (09:43→11:45)
[2017-02-03] MEDS ORDERED: KEFZOL 2 GM/D5W 2 GM/50 ML IVPB ONE (09:43)
[2017-02-03] MEDS ORDERED: PEPCID ONE (09:43)
[2017-02-03] MEDS ORDERED: ENTEREG ONE (09:43)
[2017-02-03] MEDS ORDERED: FENTANYL ONE (10:21)
[2017-02-03] MEDS ORDERED: QUELICIN (DOSE) ONE (10:21)
[2017-02-03] MEDS ORDERED: XYLOCAINE-MPF 2% ONE (10:21)
[2017-02-03] MEDS ORDERED: DIPRIVAN 1% ONE (10:21)
[2017-02-03] MEDS ORDERED: EPHEDRINE ONE (10:22)
[2017-02-03] MEDS ORDERED: XYLOCAINE 2% JELLY ONE (10:22)
[2017-02-03] MEDS ORDERED: DECADRON ONE (10:23)
[2017-02-03] MEDS ORDERED: ZOFRAN ONE (10:23)
[2017-02-03] MEDS ORDERED: NORCURON ONE ×2 (10:26→14:06)
[2017-02-03] MEDS ORDERED: SODIUM CHLORIDE 0.9% 10 ML ONE (10:29)
[2017-02-03] MEDS ORDERED: ROBINUL ONE ×2 (10:31→14:36)
[2017-02-03] MEDS ORDERED: VALIUM PO ONE (11:04)
[2017-02-03] MEDS ORDERED: MARCAINE 0.25% PF ONE (11:08)
[2017-02-03] MEDS ORDERED: SODIUM CHLORIDE 0.9% ONE (11:08)
[2017-02-03] MEDS ORDERED: EXPAREL 1.3% ONE (11:09)
[2017-02-03] MEDS ORDERED: VERSED ONE ×2 (11:26→11:35)
[2017-02-03] MEDS ORDERED: SENSORCAINE 0.25%/EPI 1:200,000 ONE (11:45)
[2017-02-03] MEDS ORDERED: XYLOCAINE 1% ONE (11:45)
[2017-02-03] MEDS ORDERED: MEFOXIN 2 GM/NS 2 GM/50 ML IVPB IV ONE (13:00)
[2017-02-03 13:05] LABS: URINE MICRO REVIEW NEEDED? NO; URINE SOURCE CATH
[2017-02-03 13:12] LABS: BILIRUBIN URINE NEGATIVE (NEGATIVE); BLOOD URINE NEGATIVE (NEGATIVE); COLOR YELLOW; GLUCOSE URINE NEGATIVE (NEGATIVE); LEUKOCYTES URINE NEGATIVE (NEGATIVE); NITRITE URINE NEGATIVE (NEGATIVE); PH URINE 5.5; PROTEIN URINE NEGATIVE (NEGATIVE); SP GRAVITY URINE 1.011; TURBIDITY URINE CLEAR (CLEAR); UROBILINOGEN URINE NORMAL (NORMAL)
[2017-02-03 13:14] LABS: UR EPITHELIAL CELLS <10 /HPF (<10); URINE BACTERIA NEGATIVE /HPF; URINE RBC <10 /HPF (<10); URINE WBC <10 /HPF (<10)
[2017-02-03] MEDS ORDERED: OFIRMEV 1000 MG/ISOTONIC SOLN 1,000 MG/100 ML BOTTLE ONE (13:14)
[2017-02-03] MEDS ORDERED: STERILE WATER INJ. ONE (14:06)
[2017-02-03] MEDS ORDERED: NEOSTIGMINE ONE (14:37)
[2017-02-03] MEDS: MORPHINE ONE ×2 (15:14→15:20)
[2017-02-03] MEDS: LR 1,000 ML ONE (15:20)
[2017-02-03] MEDS ORDERED: DILAUDID ONE ×2 (15:21→15:48)
--- NOTE | 2017-02-03 15:50 | OPERATIVE NOTE ---
PROCEDURE DATE: 02/03/2017 PREOPERATIVE DIAGNOSES: 1. History of diverticulitis with perforation and abscess. 2. Diverticular stricture. POSTOPERATIVE DIAGNOSES: 1. History of diverticulitis with perforation and abscess. 2. Diverticular stricture. 3. Enterocolonic fistula. PROCEDURE: 1. Open low anterior resection with stapled end-to-end anastomosis (28 mm). 2. Mobilization of the splenic flexure, open. 3. Open repair of enterocolonic fistula. SURGEON: Bassam Helton MD. ROVING TELLER: Dr. Javier De La Cruz. He assisted with the entirety of the case. ANESTHESIA: General endotracheal. INTRAOPERATIVE FINDINGS: As above. COMPLICATIONS: None at time of dictation. ESTIMATED BLOOD LOSS: 150 mL. SPECIMENS REMOVED: Colon and stapled ends. BRIEF HISTORY: The patient is a 56-year-old male presenting with a diverticulitis several months ago. We got him over this. He continued to have issues. We did a colonoscopy and we were unable to get past the area of diverticulitis. We did a barium enema and we unable to get past the diverticulitis. We felt the patient would benefit from resection of this area given the stricture and his history of diverticulitis perforation. The risks, benefits, alternatives were discussed. All questions answered. DETAILS OF OPERATION: After informed consent was obtained, patient brought to the operative theatre, transferred to operating table, placed in supine position. General endotracheal anesthesia was then performed without complication. A formal time-out was then performed confirming patient, date, procedure. All were in agreement. At that time, the patient was repositioned in lithotomy position. His abdomen was prepped and draped in sterile fashion. After the formal time-out, we turned our attention to the abdomen. We initially elected to try to go laparoscopically. We placed initial 11 mm trocar infraumbilical and then another 5 mm above the umbilicus, another 5 mm below the umbilicus and a 5 mm in left lower quadrant. Upon entering the abdomen, with insufflation we noticed there were dense adhesions. We mobilized along the white line of Toldt, as far as we could laparoscopically, but we encounter significant adhesions to the point we felt it was unsafe to proceed laparoscopically. Therefore, we removed all trocars, disconnected insufflation, pneumoperitoneum was released. We made a standard midline incision, all the way to the fascia. Upon entering the abdomen, we found these dense adhesions. We were able to break the colon off the lateral wall on the left side. After meticulous dissection, we freed up completely. To facilitate dissection, we did transect the colon at the normal bowel at the proximal sigmoid colon and elevated it and then mobilized down posteriorly and distally. It was still intimately attached to the lateral wall on the left side. There was also a segment of small bowel from the distal terminal ileum that was intimately attached down to the area of perforation. He was developing an enterocolonic fistula. We took this down. There was a small mucosal injury noted on the small bowel secondary to this fistula that we repaired with interrupted 3-0 nylons with good results. The bowel itself appeared to be viable. But again, there was an enterocolonic fistula there. Once we had mobilized as best we could, we elected to staple across the rectum at a good point. We used the TA stapler with good results. We then mobilized the colon as best we could. We had to take down the white line of Toldt open all the way to the splenic flexure. We took down the splenic flexure open onto the transverse colon. There was a small injury noted to the spleen, in the capsule of the spleen, but it did not actively bleed. We were able to mobilize the splenic flexure in its entirety to bring the colon down without tension down to the pelvis. We did have to sacrifice the inferior mesenteric artery to facilitate mobilization, but the bowel was viable at the time of transection. We were able to mobilize it all the way down to fit down to the pelvis. We placed a pursestring stitch around the proximal end, brought the stapler up from the rectum, stapled across the rectum with a 28 mm EEA stapler with good results. Under water there was no air leak noted. We irrigated the abdomen copiously, reexamined all the bowel. It appeared to be viable. The colon did not appear twisted. It appeared to be in good position. It was not under tension. We irrigated the abdomen copiously, then reexamined the spleen. It was not actively bleeding. We then closed the fascia and closed the skin in the standard fashion using looped PDS and jackie for the skin. The patient tolerated procedure well was transferred back to the recovery room in stable condition. Postoperatively, we will monitor him and do the typical postoperative care. cc: Bassam Helton MD
[2017-02-03] MEDS: PHENERGAN ONE (15:57)
[2017-02-03] MEDS: MEFOXIN 2 GM/NS 2 GM/50 ML IVPB IV SCH (19:27)
[2017-02-03] MEDS: HEPARIN SUBQ SCH ×2 (19:57→22:58)
[2017-02-03] MEDS: PERIDEX MT SCH ×2 (19:58→22:58)
[2017-02-03] MEDS: NORCO-10 PO PRN (20:03)
[2017-02-04] MEDS: NORCO-10 PO PRN ×3 (00:29→17:27)
[2017-02-04] MEDS: LR 1,000 ML IV SCH ×4 (00:32→18:28)
[2017-02-04] MEDS: MORPHINE IV PRN ×3 (01:06→08:55)
[2017-02-04] MEDS: MEFOXIN 2 GM/NS 2 GM/50 ML IVPB IV SCH ×3 (05:20→18:23)
[2017-02-04 05:37] LABS: MANUAL DIFF NEEDED? NO
[2017-02-04 05:49] LABS: BASO% 0.1 % (0.0-0.8); EOS# 0.01 X1000 (0.0-0.7); EOS% 0.1 % (0.0-10.0); HEMATOCRIT 43.1 % (42.0-52.0); HEMOGLOBIN 14.5 g/dL (14.0-18.0); IMM GRAN# 0.03 X1000 (0.0-0.04); IMM GRAN% 0.2 % (0.0-0.5); LYMPH# 1.14 X1000 (1.2-3.4); LYMPH% 7.1 % (20.5-51.1); MCH 31.2 PG (27-31); MCHC 33.6 g/dL (33-37); MCV 92.7 FL (81-99); MONO# 1.36 X1000 (0.11-0.59); MONO% 8.4 % (1.7-9.3); NEUT% 84.1 % (42.2-75.2); PLT 174 X1000 (130-400); RBC 4.65 XMIL (4.7-6.1)
[2017-02-04] MEDS: HEPARIN SUBQ SCH ×3 (05:58→21:57)
[2017-02-04] MEDS: PROTONIX PO SCH (05:59)
[2017-02-04 06:02] LABS: AGAP 10; BUN 10 mg/dL (8-22); CALCIUM 8.5 mg/dL (8.8-10.2); CHLORIDE 102 mmol/L (98-107); COSMO 277; POTASSIUM 4.5 mmol/L (3.5-5.1); SODIUM 138 mmol/L (136-145); TCO2 26 mmol/L (25-35)
[2017-02-04] MEDS: LR 1,000 ML ONE (07:42)
[2017-02-04] MEDS: PHENERGAN ONE (07:42)
[2017-02-04] MEDS: ENTEREG PO SCH ×2 (08:55→21:57)
[2017-02-04] MEDS: PERIDEX MT SCH ×2 (08:55→21:57)
[2017-02-05] MEDS: MORPHINE IV PRN (01:52)
[2017-02-05] MEDS: NORCO-10 PO PRN ×2 (04:37→08:08)
[2017-02-05] MEDS: LR 1,000 ML IV SCH ×3 (04:40→22:50)
[2017-02-05] MEDS: HEPARIN SUBQ SCH ×4 (06:12→22:50)
[2017-02-05] MEDS: PROTONIX PO SCH (06:12)
[2017-02-05] MEDS: ENTEREG PO SCH ×2 (08:08→22:50)
[2017-02-05] MEDS: PERIDEX MT SCH ×2 (08:09→22:49)
--- NOTE | 2017-02-05 09:23 | Diag Imaging Result Doc PS360 ---
EXAM: CHEST-PORTABLE - 02/05/2017 HISTORY: shortness of breath TECHNIQUE: Portable chest 0019 COMPARISON: 07/27/2011 FINDINGS: Inspiration is shallow with bibasilar atelectasis. The upper lungs appear clear. There is no pleural effusion or pneumothorax identified. Heart size appears within normal limits. IMPRESSION: Shallow inspiration with bibasilar atelectasis. Underlying basilar pneumonia cannot be entirely excluded. Electronically signed by Sadiq Ramos 02/05/2017 9:21 AM
[2017-02-05 09:50] LABS: ALLEN TEST YES; BE 2.8 mmoll (-3.0-3.0); BLOOD TYPE ARTERIAL; DRAW SITE L RADIAL; METHB 1.2 % (0.0-1.5); O2(CT) 20.2 mL/dL (15.0-23.0); PCO2(98.6) 40 mmHg (35-45); PO2(98.6) 80 mmHg (60-100); SAMPLE BLOOD; SAO2 96.8 % (95.0-100.0); THB 15.4 g/dL (11.5-17.4); pH(98.6) 7.44 (7.35-7.45)
[2017-02-05 09:51] LABS: MODALITY VENTIMASK
[2017-02-05] MEDS ORDERED: TUMS EXTRA STRENGTH PO PRN (20:05)
[2017-02-06] MEDS: HEPARIN SUBQ SCH ×3 (05:54→23:41)
[2017-02-06] MEDS: PROTONIX PO SCH ×2 (05:55→06:59)
[2017-02-06 05:57] LABS: MANUAL DIFF NEEDED? NO
[2017-02-06 06:05] LABS: BASO% 0.2 % (0.0-0.8); EOS# 0.18 X1000 (0.0-0.7); EOS% 1.8 % (0.0-10.0); HEMATOCRIT 42.8 % (42.0-52.0); HEMOGLOBIN 14.3 g/dL (14.0-18.0); IMM GRAN# 0.02 X1000 (0.0-0.04); IMM GRAN% 0.2 % (0.0-0.5); LYMPH% 13.3 % (20.5-51.1); MCH 31.4 PG (27-31); MCHC 33.4 g/dL (33-37); MCV 93.9 FL (81-99); MONO# 0.86 X1000 (0.11-0.59); MONO% 8.8 % (1.7-9.3); MPV 10.7 FL (7.4-10.4); NEUT% 75.7 % (42.2-75.2); PLT 182 X1000 (130-400); RBC 4.56 XMIL (4.7-6.1)
[2017-02-06 06:27] LABS: AGAP 14; BUN 12 mg/dL (8-22); CALCIUM 8.6 mg/dL (8.8-10.2); CHLORIDE 100 mmol/L (98-107); COSMO 283; POTASSIUM 4.3 mmol/L (3.5-5.1); SODIUM 141 mmol/L (136-145); TCO2 27 mmol/L (25-35)
[2017-02-06] MEDS ORDERED: LR 1,000 ML IV SCH (08:16)
[2017-02-06] MEDS: PERIDEX MT SCH ×2 (09:31→23:41)
[2017-02-06] MEDS: ULTRAM PO PRN ×4 (09:32→23:44)
[2017-02-06] MEDS: ENTEREG PO SCH ×2 (09:32→23:41)
--- NOTE | 2017-02-07 06:39 | PROGRESS NOTE ---
DATE: 02/07/2017 SUBJECTIVE: The patient doing okay. Denied nausea. Reports some mild flatus but still feeling somewhat distended. Reports some cough, otherwise doing okay. OBJECTIVE: Vital Signs: Patient is currently afebrile. His vital signs have been stable. General: No acute distress. Resting comfortably in bed. Cardiovascular: Regular rate and rhythm. Lungs: The patient currently on 3 L nasal cannula, saturating in the mid-to-high 90s. He is in no respiratory distress. Abdomen: Mildly distended. Incision is clean, dry, intact. Dressing removed. Bowel sounds auscultated. LABORATORY: Reviewed from the weekend. ASSESSMENT AND PLAN: A 56-year-old, male postoperative day #4 from open sigmoid resection. 1. Postoperative state at this time, we will advance him to a full liquid diet. He still probably has somewhat of a postoperative ileus but will need to monitor him. I think he is making good progress overall. 2. Respiratory status at this time reviewed in Dr. Tellez's notes. It sounds like he has improvement from his respiratory status. We will keep an eye on him keep him on supplemental oxygen. He will need to mobilize somewhat. cc: Bassam Helton MD
[2017-02-07] MEDS: HEPARIN SUBQ SCH ×3 (06:41→22:13)
[2017-02-07] MEDS: ULTRAM PO PRN ×2 (06:41→13:49)
[2017-02-07] MEDS: PROTONIX PO SCH (06:42)
[2017-02-07] MEDS: ENTEREG PO SCH ×2 (09:17→22:13)
[2017-02-07] MEDS: PERIDEX MT SCH ×2 (09:18→22:13)
--- NOTE | 2017-02-08 06:18 | PROGRESS NOTE ---
DATE: 02/08/2017 SUBJECTIVE: Patient did have a bowel movement. He tolerated his full liquid diet. No major issues. OBJECTIVE: Vital Signs: Patient is currently afebrile. His vital signs are stable. General Examination: No acute distress. Resting comfortably. Cardiovascular: Regular rate and rhythm. Lungs: Grossly clear. No increased labored breathing. Abdomen: Soft, less distended. Incision clean, dry, and intact. Bowel sounds auscultated. ASSESSMENT AND PLAN: A 56-year-old, male postoperative day 5 from an open sigmoid resection. 1. Postoperative state. At this time, patient is being advanced to a regular diet. I think he can potentially be discharged in the next 24 hours. 2. Respiratory status at this time seems to be improved. cc: Bassam Helton MD
[2017-02-08] MEDS: PROTONIX PO SCH (06:20)
[2017-02-08] MEDS: HEPARIN SUBQ SCH ×3 (06:21→20:04)
[2017-02-08] MEDS: ENTEREG PO SCH ×2 (09:45→20:05)
[2017-02-08] MEDS: PERIDEX MT SCH ×2 (09:45→20:05)
[2017-02-09] MEDS: PROTONIX PO SCH ×2 (05:30→06:50)
[2017-02-09] MEDS: HEPARIN SUBQ SCH (05:30)
--- NOTE | 2017-02-09 06:53 | PROGRESS NOTE ---
DATE: 02/09/2017 SUBJECTIVE: Patient doing well. Tolerating a regular diet. Having bowel movements. Still requiring some supplemental oxygen. OBJECTIVE: Vital signs: The patient is currently afebrile. His vital signs are stable. General: No acute distress. Cardiovascular: Regular rate and rhythm. Lungs: Grossly clear. Abdomen: Soft, nondistended, appropriately tender. Incision is healing well. ASSESSMENT AND PLAN: A 56-year-old male status post low anterior resection and takedown of enterocolonic fistula. Postoperative state. At this time the patient is doing well. I would like to try to get him out today. I will ask the nurses to mobilize him to see what his oxygen saturation is. If it still remains low, may need to set up home O2 had have him follow up with his primary care physician for further evaluation. cc: Bassam Helton MD
[2017-02-09] MEDS: ENTEREG PO SCH (09:48)
[2017-02-09] MEDS: PERIDEX MT SCH (09:48)
[2017-02-09 10:52] VITALS: BP 132/74
--- NOTE | 2017-02-11 06:20 | DISCHARGE SUMMARY ---
ADMISSION DATE: 02/03/2017 DISCHARGE DATE: 02/09/2017 ADMITTING DIAGNOSIS: Diverticular stricture. DISCHARGE DIAGNOSES: 1. Diverticular stricture. 2. Postoperative ileus. 3. Acute respiratory insufficiency status post resolution. ADMITTING PHYSICIAN: Dr. Bassam Helton. PROCEDURES: Patient had a low anterior resection with mobilization of splenic flexure takedown intracolonic fistula on 02/03/2017. CONSULTATIONS: None. BRIEF HISTORY AND COURSE OF STAY: Patient is a 56-year-old male with a severe case of diverticulitis in the past. He had a stricture that developed and that he did have removed. He was admitted on the day described and underwent the previously described procedure which he tolerated well. His postop course was somewhat lengthened by both prolonged postoperative ileus and some acute respiratory insufficiency. On the day of discharge, he was able to ambulate without supplemental oxygen. He was tolerating regular diet and having bowel movements. His pain was controlled with p.o. pain medicine. It is felt that he would be safe to be discharged home. All arrangements were made. Again, on that day, he was afebrile. His vital signs are stable. DISPOSITION: Home. DISCHARGE CONDITION: Stable. FOLLOW UP INSTRUCTIONS: Patient will follow up with me in 1-2 weeks. cc: Bassam Helton MD
== END 2017-02-09 12:47 | disposition home or self-care (01) ==
LOC: SURHOLD 02:27 → 4N 16:13
PROVIDERS: ADMIT Surgery; ATTEND Surgery